=== PATIENT | female | born 1960 | race Caucasian/White ===

== ENCOUNTER → 2016-10-26 | Outpatient (CLI) | payer BC, MEDICARE ==
[2015-04-20 10:22] VITALS: BP 146/80
[~2016-10-26] MED LIST: ALBU2.5V13 NEB; FLUT100D INH; LEVO750T31 PO; LOSA50TA6 PO; NICO1PAT2 TP; PARO20TA55 PO; PRED20TA PO; ROFL500T PO
--- NOTE | 2016-10-26 09:39 | RAD ---
Indication: Lung nodule. Axial imaging through the chest was performed without contrast. Comparison is made with prior CT chest from 08/03/2016. No axillary lymphadenopathy is detected. Large calcified lymph node in the mediastinum is seen. There are calcified left hilar lymph nodes as well and findings are consistent with prior granulomatous exposure. No pericardial or pleural effusion is identified. Parenchymal evaluation demonstrates some mild scarring in the right apex, similar to prior exam. The parenchymal density in the right middle lobe laterally appears stable. Additional areas of linear parenchymal density and nodularity in the medial portion of the right middle lobe are also noted and similar to prior. The lower lobes appear to be clear. The upper abdomen shows calcified granulomas in the spleen. No other abnormality is detected. Impression: Overall stable noncontrast CT chest when compared with prior study from 08/03/2016. PQRS Compliance Statement: One or more of the following individualized dose reduction techniques were utilized for this examination: 1. Automated exposure control 2. Adjustment of the mA and/or kV according to patient size 3. Use of iterative reconstruction technique
== END | disposition home or self-care (01) ==
LOC: CT 08:35
PROVIDERS: ATTEND Internal Medicine Critical Care Medicine
DX: R91.1 Solitary pulmonary nodule (principal)
CPT/HCPCS: 71250

== ENCOUNTER → 2017-05-17 | Outpatient (CLI) | payer BC, MEDICARE ==
[2015-04-20 10:22] VITALS: BP 146/80
[~2017-05-17] MED LIST changes: -ALBU2.5V13 NEB; +ALBU2.5V14 NEB; -PARO20TA55 PO; +PARO20TA99 PO; -ROFL500T PO; +ROFL500T7 PO
--- NOTE | 2017-05-17 08:32 | RAD ---
Bilateral lower extremity venous Doppler 05/17/2017 at 0743 hours Indication: Bilateral lower extremity edema and pain Comparison: None available Technique: Sonographic evaluation of the bilateral lower extremity venous system was performed utilizing grayscale, color Doppler and spectral waveform analysis. Findings: Right: Common femoral vein: Normal compressibility and venous waveform. No filling defect to suggest thrombus. Superficial femoral vein: Normal compressibility and venous waveform. No filling defect to suggest thrombus. Popliteal vein: Normal compressibility and venous waveform. No filling defect to suggest thrombus. Posterior tibial vein: Normal compressibility and venous waveform. No filling defect to suggest thrombus. Greater saphenous vein: Normal compressibility and venous waveform. No filling defect to suggest thrombus. Left: Common femoral vein: Normal compressibility and venous waveform. No filling defect to suggest thrombus. Superficial femoral vein: Normal compressibility and venous waveform. No filling defect to suggest thrombus. Popliteal vein: Normal compressibility and venous waveform. No filling defect to suggest thrombus. Posterior tibial vein: Normal compressibility and venous waveform. No filling defect to suggest thrombus. Greater saphenous vein: Normal compressibility and venous waveform. No filling defect to suggest thrombus. Impression: No sonographic evidence to suggest bilateral lower extremity venous thrombosis.
--- NOTE | 2017-05-17 08:48 | RAD ---
CT chest without contrast 05/17/2017 at 0720 hours Indication: Six-month follow-up of lung nodule. Comparison: CT chest 10/26/2016 Technique: Multiple axial CT images of the chest were obtained without intravenous contrast. Coronal and sagittal reformats are provided. Findings: Thyroid gland is normal in appearance. Visualized portions of the upper neck are normal. There are no pathologically enlarged axillary, mediastinal or hilar lymph nodes. The demonstration of calcified mediastinal and left hilar lymphadenopathy. Heart size is within normal limits. No pericardial effusion. No pleural effusions. There is biapical pleural-parenchymal scarring, right greater than left. There is mild bronchial wall thickening compatible with bronchitis. There is a mixed solid and groundglass nodule in the right middle lobe measuring 9 mm with a 4 mm solid component, stable compared to 10/26/2016 (series 3, image 133) there is a lobulated nodular density in the lateral right middle lobe measuring 8 mm, which appears slightly less thick: Compared to the prior examination from 10/26/2016, however stable in size stable 4 mm solid noncalcified pulmonary nodule in the right middle lobe anteriorly (series 3, image 177). A adjacent nodular atelectasis/scarring appears stable. Findings are grossly stable dating back to 08/03/2016. Cholecystectomy changes are noted in the right upper quadrant. Calcifications within the spleen likely represents sequela of prior granulomatous exposure. Otherwise, visualized portions of the upper abdomen are normal. No suspicious osseous lesions are identified. Impression: 1. Stable mixed solid and groundglass nodule in the right middle lobe measuring 9 mm with a 4 mm solid component. This finding is stable dating back to 08/03/2016. 2. Lobular noncalcified nodule in the right middle lobe measuring up to 8 mm is stable dating back to 08/03/2016. 3. Additional nodular densities are stable dating back to 08/03/2016. Follow-up in 12 months is recommended to ensure resolution. PQRS Compliance Statement: One or more of the following individualized dose reduction techniques were utilized for this examination: 1. Automated exposure control 2. Adjustment of the mA and/or kV according to patient size 3. Use of iterative reconstruction technique
== END | disposition home or self-care (01) ==
LOC: US 07:14
PROVIDERS: ATTEND Internal Medicine Critical Care Medicine
DX: M79.662 Pain in left lower leg (principal); M79.661 Pain in right lower leg; R60.0 Localized edema; R91.1 Solitary pulmonary nodule
CPT/HCPCS: 71250; 93970

== ENCOUNTER → 2017-07-24 | Outpatient (CLI) | payer BC, MEDICARE ==
[2015-04-20 10:22] VITALS: BP 146/80
--- NOTE | 2017-07-24 10:55 | RAD ---
Examination: 2 views of the chest. History: History of shortness of breath Comparison: 04/17/2022 Findings: The cardiomediastinal silhouette grossly appears unremarkable. There is no infiltrate or visualized pneumothorax. Impression: No acute cardiopulmonary findings.
== END | disposition home or self-care (01) ==
LOC: RAD 09:20
PROVIDERS: ATTEND Internal Medicine Critical Care Medicine
DX: J44.9 Chronic obstructive pulmonary disease, unspecified (principal)
CPT/HCPCS: 71020

== ENCOUNTER → 2017-09-17 | Outpatient (CLI) | payer BC, MEDICARE ==
[2015-04-20 10:22] VITALS: BP 146/80
--- NOTE | 2017-09-18 10:48 | SLEEP ---
DATE OF STUDY: 09/17/2017 ATTENDING PHYSICIAN: Dr. Olguin. The patient is a 57-year-old who weighs 115 pounds with a BMI of 20. [place] score was 4. Sleep study was performed at [facility]. During the night study, the patient spent 417 minutes in bed and slept for 306 minutes with a sleep efficiency of 73%. Sleep latency was 71 minutes, with a REM latency of 325 minutes. Overall, sleep architecture showed increased stage I sleep, normal stage II sleep, normal slow wave and reduced REM sleep. During the night study, the patient had no obstructive central or mixed apneas and no hypopneas. The patient's apnea-hypopnea index for the entire night was 0 per hour, supine index zero per hour and REM sleep was not seen. Review of nocturnal oximetry study revealed a mean oxygen saturation of 98%, with the lowest of 80%. 2.6% of time oxygen saturation remained between 80% and 89%. EKG monitoring revealed normal sinus rhythm, average heart rate was 81 beats per minute. No arrhythmias were observed. PLMS were seen at index of 18 per hour and 7 per hour caused EEG arousals. Due to low AHI, the patient did not meet the split night criteria for CPAP initiation. IMPRESSION: 1. No clinically significant sleep disorder breathing. The patient's AHI for the entire night was 0 per hour. 2. No significant nocturnal hypoxia. 3. Mild to moderate PLMS at an index of 18 per hour and 7 per hour caused EEG arousals. RECOMMENDATIONS: 1. The patient did not meet the split night criteria for CPAP initiation. 2. Avoid DESIGN ENGINEER depressants. 3. The patient's PLMS does not need to be treated unless patient has symptoms of restless legs during the day. SOUMYA BARNHART MD DR: PANCHITO/abel JOB#: [id number] / [id number] [facility] DR NEVEAH MTDD
== END | disposition home or self-care (01) ==
LOC: SLPLAB 18:08
PROVIDERS: ATTEND Internal Medicine Critical Care Medicine
DX: G47.33 Obstructive sleep apnea (adult) (pediatric) (principal); I10 Essential (primary) hypertension
CPT/HCPCS: 95810

== ENCOUNTER → 2018-04-21 | Outpatient (CLI) | payer BC, MEDICARE | END | disposition home or self-care (01) | LOC: US 11:50 | DX: I73.9 Peripheral vascular disease, unspecified (principal); I10 Essential (primary) hypertension; E78.5 Hyperlipidemia, unspecified; J43.9 Emphysema, unspecified | CPT/HCPCS: 93925 ==

== ENCOUNTER → 2018-05-13 | Outpatient (CLI) | payer BC, MEDICARE ==
[2015-04-20 10:22] VITALS: BP 146/80
--- NOTE | 2018-05-13 17:25 | KCIC ---
Examination: Ultrasound chest HISTORY: History of soft tissue swelling upper sternal region COMPARISON: None available Findings/ impression: Ultrasound of the upper chest in the region of perceived swelling demonstrates no definite evidence of mass or lesion on the visualized images. Electronically signed by: Garrett Guerra MD (05/13/2018 5:21 PM) [id number]
== END | disposition home or self-care (01) ==
LOC: KCIC US 11:13
PROVIDERS: ATTEND Family Medicine
DX: R22.2 Localized swelling, mass and lump, trunk (principal); I10 Essential (primary) hypertension; E78.5 Hyperlipidemia, unspecified; J44.9 Chronic obstructive pulmonary disease, unspecified; Z87.891 Personal history of nicotine dependence
CPT/HCPCS: 76604

== ENCOUNTER → 2018-08-15 | Outpatient (CLI) | payer MEDICARE ==
[2015-04-20 10:22] VITALS: BP 146/80
[~2018-08-15] MED LIST changes: -LOSA50TA6 PO; +LOSA50TA7 PO
--- NOTE | 2018-08-15 11:53 | RAD ---
EXAM: CT Chest without IV contrast CLINICAL HISTORY: LUNG NODULE
PRIOR SENT COMPARISON: None. TECHNIQUE: CT of the chest without intravenous contrast. Axial, coronal and sagittal reformatted images were generated. ---PQRS compliance statement - One or more of the following individualized dose reduction techniques were utilized for this study: 1. Automated exposure control 2. Adjustment of the mA and/or kV according to patient size 3. Use of iterative reconstruction technique--- FINDINGS: Lack of intravenous contrast limits evaluation of solid organs, vasculature, and lymph nodes. Chest: Heart is not enlarged. No pericardial effusion. Aortic root and coronary artery calcifications are seen. Calcified mediastinal and hilar lymph nodes are seen. No mediastinal or hilar lymphadenopathy by size criteria. No axillary lymphadenopathy. No pleural effusion or pneumothorax. Mild emphysematous changes are seen. The groundglass portion has resolved of the previously seen groundglass and solid nodule in the anterior right upper lobe, however the 4 mm solid component is stable. Linear/nodular middle lobe opacities are essentially stable, stable measuring 5 mm in transverse dimension. These may represent changes of scarring. Visualized Upper abdomen: Calcified granuloma of the spleen are seen. Cholecystectomy clips are seen. Bones: Osseous structures are stable. IMPRESSION: 1. The groundglass portion of the right upper lobe lung nodule has resolved although the 4 mm solid component is stable. Recommend follow-up in one year to establish stability. 2. Linear and nodular opacities in the middle lobe are grossly stable, possibly scarring. 3. Additional smaller lung nodules are stable. Electronically signed by: Casey Grijalva MD (08/15/2018 11:50 AM) [facility]
== END | disposition home or self-care (01) ==
LOC: CT 10:12
PROVIDERS: ATTEND Internal Medicine Critical Care Medicine
DX: I25.10 Atherosclerotic heart disease of native coronary artery without angina pectoris (principal); D73.89 Other diseases of spleen; R91.8 Other nonspecific abnormal finding of lung field; Z90.49 Acquired absence of other specified parts of digestive tract
CPT/HCPCS: 71250

== ENCOUNTER → 2018-10-10 | Day surgery (SDC) | payer MEDICARE ==
[~2018-10-10] MED LIST changes: +AMOX1TAB10 PO; +BUSP5TAB PO; +CLON0.5T11 PO; +FURO40TA4 PO; +HYDR-2869 PO; +HYDROmorphone 2 MG/ML VIAL IV PRN; +IV RINGERS,LACTATED 1000ML 1,000 ML IV SCH; +LACT1CAP19 PO; +LIDOCAINE 1% PF 2 ML VIAL. ID PRN; +LIDOCAINE 2% 100 MG/5 ML SYRINGE. ONE; +LOSA-73 PO; -LOSA50TA7 PO; +METO100T7 PO; +MORPHINE SULFATE 4 MG/ML VIAL. IV PRN; +ONDANSETRON PF 4 MG/2 ML VIAL. IV PRN; +POTA20TA82 PO; +PROCHLORPERAZINE 10 MG/2 ML VIAL. IV PRN; +PROPOFOL 20 ML IV ONE; +Pantoprazole PO; +fentaNYL PF VIAL 100 MCG/2 ML VIAL IV PRN
[2018-10-10 10:30] VITALS: BP 176/85
--- NOTE | 2018-10-10 12:41 | HP ---
ADMIT DATE: 10/10/2018 REASON: Abnormal CT of the chest with possible thickened esophagus with weight loss. HISTORY OF PRESENT ILLNESS: A 58-year-old female with past medical history significant for COPD, pneumonia, hypertension, and gastroesophageal reflux disease, seen for continued weight loss approximately [address] scan did reveal distal thickening of the esophagus. An upper endoscopy for visualization and possible biopsies is recommended. The patient otherwise gives no additional complaints at the present time. PAST MEDICAL HISTORY: Hypertension, emphysema, anxiety, status post cholecystectomy. ALLERGIES: None. MEDICATIONS: Include albuterol, buspirone, clonazepam, Flovent, furosemide, hydralazine, losartan, metoprolol, potassium chloride. FAMILY AND SOCIAL HISTORY: She is a smoker or drinker. REVIEW OF SYSTEMS: Per records. PHYSICAL EXAMINATION: GENERAL: Reveals a thin, petite female. VITAL SIGNS: Temperature is 98.2, pulse 99, respirations 20, blood pressure is 130/70. HEENT: Normocephalic and atraumatic head. Pupils and extraocular movements are not tested. Sclerae are anicteric. NECK: Supple. LUNGS: Clear. CARDIOVASCULAR: Reveals an S1, S2 without S3, S4 or appreciable murmur. ABDOMEN: Reveals a right upper quadrant cholecystectomy incision with mild epigastric tenderness to deep palpation. No appreciable hepatosplenomegaly. EXTREMITIES: Reveals no cyanosis, clubbing, edema. IMPRESSION: Abnormal CT scan with weight loss. Differential includes David's, imaging artifact, possible malignancy/achalasia. Therefore, recommended upper endoscopy with possible biopsy and/or dilatation. Risks and benefits have been previously discussed. The patient is willing to proceed at this time. TAWANDA HERNANDEZ MD DR: HAYDEE/abel JOB#: [id number] / [id number]
--- NOTE | 2018-10-13 15:08 | PATHOLOGY ---
[facility] Accession Number: [id number] . 01 Material submitted: . DISTAL ESOPHAGUS . 01 Clinical history: . Weight loss . 02 Diagnosis: Esophageal biopsies, distal esophagus: - Segments of hyperplastic squamous esophageal mucosa, and segment of esophagogastric mucosa showing chronic inflammation, consistent with reflux esophagitis. [facility]/10/13/2018 . 02 Comment: Sections of the distal esophageal biopsy reveal three segments of tangentially oriented hyperplastic squamous esophageal mucosa, and a segment of esophagogastric mucosa showing mild to moderate chronic inflammation. The findings are consistent with reflux esophagitis. There is no evidence of David's change, dysplasia, or malignancy. (JPM:[facility] 10/13/2018) . 02 Electronically signed: . Art Ramirez MD, Pathologist NPI- [id number] . 01 Gross description: . Received in formalin labeled "Renetta Merida, distal esophagus BX, rule out David's," are 4 segments of corcoran soft tissue measuring 0.9 x 0.8 x 0.2 cm in aggregate dimensions and ranging from 0.4 to 0.5 cm in maximum dimension. The specimen is submitted entirely in cassette A1. (TSD; 10/10/2018) TOB/TOB . 02 Pathologist provided ICD-10: K21.0 . 02 CPT . 212265 Specimen Comment: A courtesy copy of this report has been sent to Specimen Comment: [phone], . Specimen Comment: Report sent to and Performed at: [address], [place], [place] [id number] MD Dario Arce MD Phone: [phone] Performed at: 02 [facility] [address], [place] [id number] MD Art Ramirez MD Phone: [phone]
== END | disposition home or self-care (01) ==
LOC: SURG 08:24
PROVIDERS: ATTEND Internal Medicine Gastroenterology
DX: K21.0 Gastro-esophageal reflux disease with esophagitis (principal); I10 Essential (primary) hypertension; F41.9 Anxiety disorder, unspecified; J43.9 Emphysema, unspecified; Z87.01 Personal history of pneumonia (recurrent); Z90.49 Acquired absence of other specified parts of digestive tract; Z79.899 Other long term (current) drug therapy; Z72.89 Other problems related to lifestyle; F17.200 Nicotine dependence, unspecified, uncomplicated
CPT/HCPCS: 43239; J2704; 88305

== ENCOUNTER → 2019-08-07 | Outpatient (CLI) | payer MEDICARE ==
[2018-10-10 10:30] VITALS: BP 176/85
[~2019-08-07] MED LIST changes: +CLON-77 PO; -CLON0.5T11 PO; -HYDROmorphone 2 MG/ML VIAL IV PRN; -IV RINGERS,LACTATED 1000ML 1,000 ML IV SCH; -LIDOCAINE 1% PF 2 ML VIAL. ID PRN; -LIDOCAINE 2% 100 MG/5 ML SYRINGE. ONE; -MORPHINE SULFATE 4 MG/ML VIAL. IV PRN; -ONDANSETRON PF 4 MG/2 ML VIAL. IV PRN; -PROCHLORPERAZINE 10 MG/2 ML VIAL. IV PRN; -PROPOFOL 20 ML IV ONE; -fentaNYL PF VIAL 100 MCG/2 ML VIAL IV PRN
--- NOTE | 2019-08-07 16:25 | KCIC ---
CT scan of the chest without contrast 08/07/2019 CLINICAL HISTORY: Lung nodule. COPD. TECHNIQUE: Unenhanced, contiguous, 5 mm axial sections were obtained through the chest and upper abdomen. One or more of the following individualized dose reduction techniques were utilized for this study: 1. Automated exposure control. 2. Adjustment of the mA and/or kV according to patient size. 3. Use of iterative reconstruction technique. FINDINGS: Comparison study is dated 09/08/2018. Atherosclerotic calcification of the thoracic aorta and its branches is noted. The thoracic aorta is tortuous but tapers normally. Calcified hilar and mediastinal lymph nodes are again seen. Slightly prominent noncalcified mediastinal lymph nodes are seen which measure 8 mm to 1.5 cm in size. They are unchanged. The heart is normal in size. Scattered coronary artery calcifications are noted. Mild emphysematous changes are seen involving both lungs. Areas of scarring are seen involving the apices of both lungs. The area of subsegmental atelectasis and/or infiltrate involving the right middle lobe seen on the previous examination has significantly improved. The area of consolidation involving the left upper lobe has resolved. A 1.2 cm calcified granuloma is seen involving the inferior aspect of the left upper lobe, unchanged. A 6 mm partially calcified granuloma is seen involving the right lower lobe, unchanged. No new pulmonary nodule is seen. No pneumothorax or pleural effusion is noted. Images through the upper abdomen demonstrate surgical clips within the gallbladder fossa consistent with cholecystectomy. Multiple calcified granulomas are seen throughout the spleen. A 2 mm nonobstructing calculus is seen involving the midpole of the left kidney. Atherosclerotic calcification of the abdominal aorta and its branches is noted. Very mild S-shaped curvature of the thoracolumbar spine is seen. IMPRESSION: 1. The area of consolidation seen involving the left upper lobe on the previous examination has resolved. The right middle lobe subsegmental atelectasis and/or infiltrate has largely resolved. 2. Findings consistent with prior granulomatous disease, unchanged. No new pulmonary nodule is seen. 3. No acute abnormality is seen. Electronically signed by: Atif Son MD (08/07/2019 4:21 PM) [facility]
== END | disposition home or self-care (01) ==
LOC: KCIC CT 09:47
PROVIDERS: ATTEND Family Medicine
DX: J43.9 Emphysema, unspecified (principal); J98.11 Atelectasis; R91.8 Other nonspecific abnormal finding of lung field; J84.10 Pulmonary fibrosis, unspecified; I10 Essential (primary) hypertension; I70.0 Atherosclerosis of aorta; I25.10 Atherosclerotic heart disease of native coronary artery without angina pectoris; D73.89 Other diseases of spleen; N20.0 Calculus of kidney; F17.200 Nicotine dependence, unspecified, uncomplicated; Z90.49 Acquired absence of other specified parts of digestive tract
CPT/HCPCS: 71250

== ENCOUNTER → 2019-08-31 | Outpatient (CLI) | payer MEDICARE ==
[2018-10-10 10:30] VITALS: BP 176/85
[~2019-08-31] MED LIST changes: +POTA20TA4 PO; -POTA20TA82 PO
--- NOTE | 2019-08-31 11:05 | CARD ---
MR#: [id number] Date of Study: 08/31/2019 Ordering Physician: CHEO PIERRE, Referring Physician: CHEO PIERRE, Tech: Esperanza Schmitt MARGARITA APPROVED REPORT EXAM: Two-dimensional and M-mode echocardiogram with Doppler and color Doppler. Other Information Quality : Fair Rhythm : NSRTechnically limited study due to smoking and possible COPD. INDICATION Congestive Heart Failure Smoker 40 plus years 2D DIMENSIONS RVDd1.9 (2.9-3.5cm)Left Atrium(2D)2.7 (1.6-4.0cm) IVSd0.9 (0.7-1.1cm)Aortic Root(2D)1.7 (2.0-3.7cm) LVDd3.8 (3.9-5.9cm)LVOT Diameter1.8 (1.8-2.4cm) PWd0.9 (0.7-1.1cm)LVDs2.3 (2.5-4.0cm) FS (%) 40.4 %SV43.9 ml LVEF(%)60.0 (>50%) Aortic Valve AoV Peak Joselo.92.9cm/sAoV VTI14.7cm AO Peak GR.3.5mmHgLVOT Peak Joselo.81.0cm/s AO Mean GR.2mmHgAVA (VMAX)2.20cm2 SHANELL (VTI)2.20cm2 Mitral Valve MV E Uqbvencm99.6cm/sMV DECEL [id number] MV A Pwahdkac04.7cm/sE/A Ratio0.7 Pulmonary Vein S1 Pnfhxlwm63.2cm/sD2 Auysnuqx63.5cm/s LEFT VENTRICLE The left ventricle is normal size. There is normal left ventricular wall thickness. The left ventricu lar systolic function is normal. The Ejection Fraction is 55-60%. There is normal LV segmental wall m otion. Transmitral Doppler flow pattern is Grade I-abnormal relaxation pattern. RIGHT VENTRICLE The right ventricle is normal size. The right ventricular systolic function is normal. ATRIA The left atrium size is normal. The right atrium size is normal. The interatrial septum is intact wit h no evidence for an atrial septal defect or patent foramen ovale as noted on 2-D or Doppler imaging. AORTIC VALVE The aortic valve is not well visualized but appears to be functioning normally by Doppler interrogati on. Doppler and Color Flow revealed no significant aortic regurgitation. There is no significant aort ic valvular stenosis. MITRAL VALVE The mitral valve is calcified but opens well. There is no evidence of mitral valve prolapse. There is no mitral valve stenosis. Doppler and Color Flow revealed no mitral valve regurgitation noted. TRICUSPID VALVE The tricuspid valve is normal in structure and function. Doppler and Color Flow revealed no tricuspid valve regurgitation noted. There is no tricuspid valve stenosis. PULMONIC VALVE The pulmonic valve is not well visualized. Doppler and Color Flow revealed no pulmonic valvular regur gitation. There is no pulmonic valvular stenosis. GREAT VESSELS The aortic root is normal in size. The ascending aorta is normal in size. The IVC is normal in size a nd collapses >50% with inspiration. PERICARDIAL EFFUSION There is no evidence of significant pericardial effusion. Critical Notification Critical Value: No <Conclusion> The left ventricular systolic function is normal. The Ejection Fraction is 55-60%. There is normal LV segmental wall motion. Transmitral Doppler flow pattern is Grade I-abnormal relaxation pattern. There is no evidence of significant pericardial effusion. Signed by : Servando Santos, Electronically Approved : 08/31/2019 11:04:54
== END | disposition home or self-care (01) ==
LOC: ECHO 09:19
PROVIDERS: ATTEND Internal Medicine Cardiovascular Disease
DX: I50.9 Heart failure, unspecified (principal)
CPT/HCPCS: 93306

== ENCOUNTER → 2019-10-07 | Outpatient (CLI) | payer MEDICARE, OTHER ==
[2018-10-10 10:30] VITALS: BP 176/85
--- NOTE | 2019-10-07 17:43 | RAD ---
DATE: 10/07/2019 EXAM: MAMMO BLOSSOM SCREENING BILATERAL HISTORY: Routine screening COMPARISON: 01/06/2018 mammographic exam performed at diagnostic imaging centers This study was interpreted with the benefit of Computerized Aided Detection (CAD). Breast Density: HETERO The breast parenchyma is heterogenously dense, which could reduce sensitivity of mammography. Breast parenchyma level C. FINDINGS: No mass, calcification, or distortion in the interval. IMPRESSION: Stable BI-RADS CATEGORY: 2 BENIGN FINDING(S) RECOMMENDED FOLLOW-UP: 12M 12 MONTH FOLLOW-UP PQRS compliance statement: Patient information was entered into a reminder system with a target due date for the next mammogram. Mammography is a sensitive method for finding small breast cancers, but it does not detect them all and is not a substitute for careful clinical examination. A negative mammogram does not negate a clinically suspicious finding and should not result in delay in biopsying a clinically suspicious abnormality. "Our facility is accredited by the [employer] Mammography Program."
== END | disposition home or self-care (01) ==
LOC: MAMMO 08:20
PROVIDERS: ATTEND Family Medicine
DX: Z12.31 Encounter for screening mammogram for malignant neoplasm of breast (principal)
CPT/HCPCS: 77063; 77067

== ENCOUNTER → 2020-11-21 | Outpatient (CLI) | payer MEDICARE ==
[2018-10-10 10:30] VITALS: BP 176/85
--- NOTE | 2020-11-21 14:07 | RAD ---
MR#: [id number] Date of Study: 11/21/2020 Ordering Physician: CHEO PIERRE, Referring Physician: CHEO PIERRE, Tech: Tangela Caal, VAUGHN, RVT, RTR APPROVED REPORT Patient Location: OUT-PATIENT Indications Claudication:Bilaterally Bilateral Foot Pain at Night Risk Factors Hypertension Smoking VELOCITY AND DOPPLER WAVEFORM ANALYSIS RIGHT cm/secWaveformSeverity LEFT cm/secWaveform Severity pCFA 106.4pCFA 198.0 dCFA 87.9dCFA 154.2 Prof Fem Art. 80.3Prof Fem Art. 76.8 Fem Art Prox. 182.8Fem Art Prox. 125.9 Fem Art Mid. 111.5Fem Art Mid. 100.9 Fem Art Dist. 101.0Fem Art Dist. 124.9 Pop Art(AK) 68.0Pop Art(AK) 50.0 Pop Art(BK) 53.5Pop Art(BK) 49.5 BUFFER COPPER Prox. 36.4PTA Prox. 36.6 BUFFER COPPER Dist. 54.4PTA Dist. 63.0 Per Art Prox. 93.4Per Art Prox. 53.2 MAIK Prox. 46.9ATA Prox. 81.6 DPA 67DPA 47 Findings Grayscale images the bilateral lower extremity arterial vessels demonstrate mild diffuse atherosclero tic plaque without any focal obstruction. On the right side spectral waveforms and color Doppler are notable for mostly biphasic waveforms with three-vessel runoff below the knee. No focal high-grade stenosis identified. In the left side mildly elevated velocities at the proximal common femoral artery but no clear eviden ce of inflow obstruction. There is again three-vessel runoff in the left lower extremity without any critical stenosis. Critical Notification Critical Value: No <Conclusion> 1. Mildly elevated velocities in the right proximal SFA and the left proximal common femoral artery without any focal obstruction. There is three-vessel runoff bilaterally with biphasic waveforms thro ughout. Signed by : Андрей Christian, Electronically Approved : 11/21/2020 14:06:20
== END ==
LOC: US 13:08
PROVIDERS: ATTEND Internal Medicine Cardiovascular Disease
DX: I70.203 Unspecified atherosclerosis of native arteries of extremities, bilateral legs (principal)
CPT/HCPCS: 93925

== ENCOUNTER → 2021-05-05 | Outpatient (CLI) | payer MEDICARE ==
[2018-10-10 10:30] VITALS: BP 176/85
[~2021-05-05] MED LIST changes: -FLUT100D INH; +FLUT100D2 INH
--- NOTE | 2021-05-05 09:33 | RAD ---
EXAM: Chest, 2 views. HISTORY: COPD. COMPARISON: 09/11/2018 FINDINGS: 2 views of chest are obtained. There is hyperinflation and hyperlucency due to emphysema. T here is biapical pleural parenchymal scarring. There is blunting of the costophrenic angles likely du e to small pleural effusions or basilar pleural thickening. There is no infiltrate tr pneumothorax. T he heart is stable in size. There are calcified granulomas. There are circumscribed nodules overlying the bilateral mid to lower thorax due to nipple shadows. IMPRESSION: 1. Pulmonary emphysema. 2. Suspected small pleural effusions or basilar pleural thickening. Electronically signed by: Karrie Rodriguez MD (05/05/2021 9:31 AM) [id number]
== END ==
LOC: RAD 09:04
PROVIDERS: ATTEND Internal Medicine Pulmonary Disease
DX: J43.8 Other emphysema (principal); L92.8 Other granulomatous disorders of the skin and subcutaneous tissue; R91.8 Other nonspecific abnormal finding of lung field
CPT/HCPCS: 71046